=== PATIENT | male | born 1995 | race Caucasian/White ===

== ENCOUNTER 2020-11-29 16:46 | Inpatient (IN) | payer MEDICAID, SELFPAY ==
[~2020-11-29] VITALS: Ht 162.6 cm; Wt 58.1 kg
[2020-11-29 16:51] VITALS: BP_SYST 121
[2020-11-29] MEDS ORDERED: ONDANSETRON HCL 4 MG/2 ML VIAL IVP ONE (17:30)
[2020-11-29] MEDS ORDERED: ALBUTEROL SULFATE 0.083% 2.5 MG/3 ML VIAL.NEB INH ONE (17:30)
[2020-11-29] MEDS ORDERED: CLINDAMYCIN 600 mg/50mL D5W 50 ML IV ONE (17:30)
[2020-11-29] MEDS ORDERED: IPRATROPIUM BROM 0.5 MG/2.5 ML VIAL.NEB (ATROVENT) INH ONE (17:30)
[2020-11-29] MEDS ORDERED: NACL 0.9% 1,000 ML IV ONE (17:30)
[2020-11-29] MEDS ORDERED: MORPHINE 4 MG INJ. 4 MG/ML VIAL IVP ONE (17:30)
[2020-11-29 17:57] LABS: BILIRUBIN,URINE NEGATIVE (NEGATIVE); BLOOD, URINE NEGATIVE (NEGATIVE); CLARITY/URINE CLEAR (CLEAR); COLOR,URINE YELLOW (YELLOW); GLUCOSE,URINE NEGATIVE (NEGATIVE); KETONES,URINE TRACE (NEGATIVE); LEUKOCYTE ESTERASE ,URINE NEGATIVE (NEGATIVE); NITRITE, URINE NEGATIVE (NEGATIVE); PROTEIN URINE NEGATIVE (NEGATIVE); UROBILINOGEN,URINE 0.2 (0.2-1.0)
[2020-11-29 18:04] LABS: BASOPHILS # (AUTO) 0.1 K/uL (0.0-0.2); BASOPHILS % (AUTO) 0.5 % (0.0-2.0); EOSINOPHILS # (AUTO) 0.8 K/uL (0.0-0.4); EOSINOPHILS % (AUTO) 6.9 % (0.0-4.0); HEMATOCRIT 46.5 % (36-54); LYMPHOCYTES # (AUTO) 1.8 K/uL (1.0-5.5); LYMPHOCYTES % (AUTO) 14.9 % (20.5-51.5); MEAN CORPUSCULAR HEMOGLOBIN 30 pg (27-31); MEAN CORPUSCULAR HGB CONC 35 % (32-36); MEAN CORPUSCULAR VOLUME 86 fL (79.0-98.0); MONOCYTES # (AUTO) 0.7 K/uL (0.0-1.0); MONOCYTES % (AUTO) 5.5 % (1.7-9.3); NEUTROPHILS # (AUTO) 8.7 K/uL (1.8-7.7); NEUTROPHILS % (AUTO) 72.2 % (40.0-70.0); PLATELET COUNT (AUTO) 295 K/uL (130-430); RED CELL DISTRIBUTION WIDTH 13.4 % (9.0-15.0); WHITE BLOOD COUNT (AUTO) 12.1 K/uL (4.8-10.8)
[2020-11-29 18:11] LABS: CALCIUM 8.9 mg/dL (8.4-11.0); CREATININE 0.9 mg/dL (0.55-1.30); POTASSIUM 3.6 mmol/L (3.5-5.1)
[2020-11-29 18:17] LABS: ALBUMIN 4.4 g/dL (3.4-4.8); TOTAL BILIRUBIN 0.5 mg/dL (0.0-1.0)
[2020-11-29] MEDS ORDERED: ACETAMINOPHEN 325 MG TABLET PO PRN (19:30)
[2020-11-29 19:54] LABS: CHOLESTEROL 149 mg/dL (<200); HDL CHOLESTEROL 67 mg/dL (>45); LDL CHOLESTEROL 82 mg/dL (<100); TRIGLYCERIDES 54 mg/dL (30-150)
[2020-11-29 19:55] LABS: PROTHROMBIN TIME 10.2 SECS (9.5-12.5)
[2020-11-29] MEDS ORDERED: VANCOMYCIN HCL 1 GM/NS PREMIX 250 ML IV ONE (20:00)
[2020-11-29 21:10] VITALS: BP_SYST 124
[2020-11-29] MEDS ORDERED: MORPHINE 2 MG/ML INJ. SYRINGE IVP PRN ×2 (22:15)
[2020-11-29] MEDS ORDERED: ONDANSETRON HCL 4 MG/2 ML VIAL IVP PRN (22:15)
[2020-11-29] MEDS ORDERED: VANCOMYCIN HCL 1000 MG/VIAL IV ONE (22:22)
[2020-11-29] MEDS: D5NS 1,000 ML IV SCH (22:39)
[2020-11-30] VITALS: BP_SYST 124
[2020-11-30 06:46] LABS: BASOPHILS % (AUTO) 0.3 % (0.0-2.0); EOSINOPHILS # (AUTO) 0.8 K/uL (0.0-0.4); EOSINOPHILS % (AUTO) 9.4 % (0.0-4.0); HEMATOCRIT 43.1 % (36-54); HEMOGLOBIN 14.5 g/dL (14.0-18.0); LYMPHOCYTES # (AUTO) 1.5 K/uL (1.0-5.5); LYMPHOCYTES % (AUTO) 17.5 % (20.5-51.5); MEAN CORPUSCULAR HEMOGLOBIN 29 pg (27-31); MEAN CORPUSCULAR HGB CONC 34 % (32-36); MEAN CORPUSCULAR VOLUME 87 fL (79.0-98.0); MONOCYTES # (AUTO) 0.5 K/uL (0.0-1.0); MONOCYTES % (AUTO) 5.8 % (1.7-9.3); NEUTROPHILS # (AUTO) 5.8 K/uL (1.8-7.7); PLATELET COUNT (AUTO) 262 K/uL (130-430); RED BLOOD CELL COUNT(AUTO) 4.94 MIL/uL (4.2-6.2); WHITE BLOOD COUNT (AUTO) 8.6 K/uL (4.8-10.8)
[2020-11-30 07:12] LABS: ALBUMIN 3.5 g/dL (3.4-4.8); CALCIUM 7.9 mg/dL (8.4-11.0); CREATININE 0.78 mg/dL (0.55-1.30); POTASSIUM 3.6 mmol/L (3.5-5.1); TOTAL BILIRUBIN 0.8 mg/dL (0.0-1.0)
[2020-11-30 07:55] VITALS: BP_SYST 112
[2020-11-30] MEDS ORDERED: VANCOMYCIN HCL 1,000 MG in NS 250 ML IV SCH (09:00)
[2020-11-30] MEDS: VANCOMYCIN HCL 750 MG in NS 250 ML IV SCH ×2 (10:39→18:48)
[2020-11-30 12:00] VITALS: BP_SYST 118
[2020-11-30] MEDS ORDERED: FLU VACC QS2020-21 (6 mos & up) 0.5 ML/SYRINGE I.M. PRN (12:45)
[2020-11-30 16:00] VITALS: BP_SYST 122
[2020-11-30] MEDS: D5NS 1,000 ML IV SCH (18:48)
[2020-11-30 20:00] VITALS: BP_SYST 125
[2020-11-30 23:38] VITALS: BP_SYST 125
[2020-12-01] VITALS: BP_SYST 125
[2020-12-01] MEDS: VANCOMYCIN HCL 750 MG in NS 250 ML IV SCH (01:28)
[2020-12-01 08:00] VITALS: BP_SYST 124
[2020-12-01] MEDS: levoFLOXacin 500 MG TABLET PO SCH (09:34)
[2020-12-01] MEDS: guaiFENesin/DEXTROMETHORPHAN 10 ML UDC PO PRN ×4 (10:10→22:17)
[2020-12-01] MEDS: ALBUTEROL SULFATE 0.083% 2.5 MG/3 ML VIAL.NEB INH PRN (10:39)
[2020-12-01] MEDS: D5NS 1,000 ML IV SCH ×2 (11:30→14:06)
[2020-12-01 12:00] VITALS: BP_SYST 110
[2020-12-01 16:00] VITALS: BP_SYST 112
[2020-12-01 21:00] VITALS: BP_SYST 125
[2020-12-02 01:55] VITALS: BP_SYST 123
[2020-12-02 08:00] VITALS: BP_SYST 160
[2020-12-02] MEDS: levoFLOXacin 500 MG TABLET PO SCH (09:28)
[2020-12-02 11:24] VITALS: BP_SYST 131
[2020-12-02 15:26] VITALS: BP_SYST 115
[2020-12-02] MEDS: guaiFENesin/DEXTROMETHORPHAN 10 ML UDC PO PRN ×2 (17:49→22:14)
[2020-12-02 20:00] VITALS: BP_SYST 113
[2020-12-03 00:01] VITALS: BP_SYST 120
[2020-12-03 05:57] LABS: BASOPHILS # (AUTO) 0.1 K/uL (0.0-0.2); BASOPHILS % (AUTO) 0.7 % (0.0-2.0); EOSINOPHILS # (AUTO) 0.9 K/uL (0.0-0.4); EOSINOPHILS % (AUTO) 12.8 % (0.0-4.0); HEMATOCRIT 47.2 % (36-54); LYMPHOCYTES # (AUTO) 2.5 K/uL (1.0-5.5); MEAN CORPUSCULAR HEMOGLOBIN 29 pg (27-31); MEAN CORPUSCULAR HGB CONC 34 % (32-36); MEAN CORPUSCULAR VOLUME 87 fL (79.0-98.0); MONOCYTES # (AUTO) 0.6 K/uL (0.0-1.0); MONOCYTES % (AUTO) 7.5 % (1.7-9.3); NEUTROPHILS # (AUTO) 3.3 K/uL (1.8-7.7); PLATELET COUNT (AUTO) 295 K/uL (130-430); RED BLOOD CELL COUNT(AUTO) 5.45 MIL/uL (4.2-6.2); RED CELL DISTRIBUTION WIDTH 13.4 % (9.0-15.0); WHITE BLOOD COUNT (AUTO) 7.4 K/uL (4.8-10.8)
[2020-12-03] MEDS: guaiFENesin/DEXTROMETHORPHAN 10 ML UDC PO PRN ×2 (06:11→22:16)
[2020-12-03 06:26] LABS: CALCIUM 8.7 mg/dL (8.4-11.0); CREATININE 1.07 mg/dL (0.55-1.30); POTASSIUM 3.9 mmol/L (3.5-5.1)
[2020-12-03 08:00] VITALS: BP_SYST 138
[2020-12-03] MEDS: levoFLOXacin 500 MG TABLET PO SCH (10:13)
[2020-12-03 12:45] VITALS: BP_SYST 132
[2020-12-03 15:24] VITALS: BP_SYST 147
[2020-12-03 19:30] VITALS: BP_SYST 131
[2020-12-03] MEDS: ALBUTEROL SULFATE 0.083% 2.5 MG/3 ML VIAL.NEB INH PRN (22:18)
[2020-12-03 23:45] VITALS: BP_SYST 131
[2020-12-04 08:00] VITALS: BP_SYST 128
[2020-12-04] MEDS: levoFLOXacin 500 MG TABLET PO SCH (11:00)
[2020-12-04 15:23] VITALS: BP_SYST 139
[2020-12-04 16:35] VITALS: BP_SYST 128
[2020-12-04 19:45] VITALS: BP_SYST 132
[2020-12-05 00:30] VITALS: BP_SYST 134
[2020-12-05] MEDS: guaiFENesin/DEXTROMETHORPHAN 10 ML UDC PO PRN ×2 (05:16→21:00)
[2020-12-05 05:57] LABS: BASOPHILS # (AUTO) 0.1 K/uL (0.0-0.2); BASOPHILS % (AUTO) 1.1 % (0.0-2.0); EOSINOPHILS # (AUTO) 1.2 K/uL (0.0-0.4); EOSINOPHILS % (AUTO) 17.7 % (0.0-4.0); HEMATOCRIT 48.8 % (36-54); HEMOGLOBIN 16.5 g/dL (14.0-18.0); LYMPHOCYTES # (AUTO) 2.7 K/uL (1.0-5.5); LYMPHOCYTES % (AUTO) 40.2 % (20.5-51.5); MEAN CORPUSCULAR HEMOGLOBIN 29 pg (27-31); MEAN CORPUSCULAR HGB CONC 34 % (32-36); MEAN CORPUSCULAR VOLUME 87 fL (79.0-98.0); MONOCYTES # (AUTO) 0.4 K/uL (0.0-1.0); NEUTROPHILS # (AUTO) 2.4 K/uL (1.8-7.7); PLATELET COUNT (AUTO) 321 K/uL (130-430); RED BLOOD CELL COUNT(AUTO) 5.61 MIL/uL (4.2-6.2); RED CELL DISTRIBUTION WIDTH 13.7 % (9.0-15.0); WHITE BLOOD COUNT (AUTO) 6.8 K/uL (4.8-10.8)
[2020-12-05 06:08] LABS: CALCIUM 9.1 mg/dL (8.4-11.0); CREATININE 1.04 mg/dL (0.55-1.30); POTASSIUM 4.6 mmol/L (3.5-5.1)
[2020-12-05] MEDS: levoFLOXacin 500 MG TABLET PO SCH (09:17)
[2020-12-05 09:20] VITALS: BP_SYST 142
[2020-12-05 12:15] VITALS: BP_SYST 131
[2020-12-05 16:30] VITALS: BP_SYST 130
[2020-12-05 19:45] VITALS: BP_SYST 129
[2020-12-06] VITALS: BP_SYST 118
[2020-12-06 08:16] VITALS: BP_SYST 127
[2020-12-06 08:45] VITALS: BP_SYST 127
[2020-12-06] MEDS: levoFLOXacin 500 MG TABLET PO SCH (09:43)
[2020-12-06 11:21] VITALS: BP_SYST 129
[2020-12-06 16:00] VITALS: BP_SYST 134
[2020-12-06] MEDS: TRIAMCINOLONE ACETONIDE 0.025% 80 GM CREAM.GM. TP SCH ×2 (17:45→21:00)
[2020-12-06 20:21] VITALS: BP_SYST 123
[2020-12-07 00:15] VITALS: BP_SYST 119
[2020-12-07 07:49] LABS: HEMATOCRIT 45.6 % (36-54); HEMOGLOBIN 15.3 g/dL (14.0-18.0); MEAN CORPUSCULAR HEMOGLOBIN 29 pg (27-31); MEAN CORPUSCULAR HGB CONC 34 % (32-36); MEAN CORPUSCULAR VOLUME 87 fL (79.0-98.0); PLATELET COUNT (AUTO) 310 K/uL (130-430); RED BLOOD CELL COUNT(AUTO) 5.24 MIL/uL (4.2-6.2); RED CELL DISTRIBUTION WIDTH 13.7 % (9.0-15.0); WHITE BLOOD COUNT (AUTO) 5.9 K/uL (4.8-10.8)
[2020-12-07 08:43] LABS: CALCIUM 8.7 mg/dL (8.4-11.0); CREATININE 0.99 mg/dL (0.55-1.30)
[2020-12-07 09:04] VITALS: BP_SYST 114
[2020-12-07] MEDS: levoFLOXacin 500 MG TABLET PO SCH (09:39)
[2020-12-07] MEDS ORDERED: TRIAMCINOLONE ACETONIDE 0.025% 15 GM CREAM.GM. TP SCH (10:31)
[2020-12-07 11:58] LABS: ATYPICAL LYMPHOCYTES % 2 % (0-0); BASOPHILS % (MANUAL) 0 % (0-2); EOSINOPHILS % (MANUAL) 16 % (0-7); LYMPHOCYTES % (MANUAL) 39 % (20-46); MONOCYTES % (MANUAL) 6 % (0-11)
[2020-12-07 12:13] VITALS: BP_SYST 135
[2020-12-07 16:12] VITALS: BP_SYST 114
[2020-12-07] MEDS ORDERED: LEVO750T45 PO (17:45)
[2020-12-07] MEDS ORDERED: GUAI5SYR PO (18:10)
[2020-12-07] MEDS ORDERED: TRIAMCINOLONE 0.025% TP (18:12)
[2020-12-07 18:19] VITALS: BP_SYST 114
== END 2020-12-07 19:10 | disposition home or self-care (01) | DRG 143 ==
LOC: SED 16:46 → STU 19:16 → SMU 12-03 14:29
PROVIDERS: ADMIT Internal Medicine; ATTEND Internal Medicine
DX: J98.2 Interstitial emphysema (principal); J98.51 Mediastinitis; R65.10 Systemic inflammatory response syndrome (SIRS) of non-infectious origin without acute organ dysfunction; Z20.822 Contact with and (suspected) exposure to COVID-19; Z87.891 Personal history of nicotine dependence; Z91.013 Allergy to seafood
CPT/HCPCS: 36415; 70491-TC; 71045; 71046-TC; 76376; 80048; 80053; 80061; 81003; 83690-TC; 84443-TC; 85007; 85025; 85027; 85610-TC; 85730-TC; 87040-TC; 93005; 94150; 94640; 94760; 96365; 96375; G0378; J2270; J2405; J3370; J3490; J7042; J7050; J7613; Q9967; U0003